=== PATIENT | male | born 1995 | race Caucasian/White ===

== ENCOUNTER 2017-04-17 12:53 | Emergency (ER) | payer OTHER ==
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
[2017-04-17] MEDS ORDERED: IBUPROFEN 600 MG TAB PO ONE (13:30)
[2017-04-17 14:38] VITALS: BP 106/72; PULSE 65; RESP 14; TEMP 98.4; O2SAT 95
== END 2017-04-17 14:38 | disposition home or self-care (01) ==
DX: S29.9XXA Unspecified injury of thorax, initial encounter (principal); V49.49XA Driver injured in collision with other motor vehicles in traffic accident, initial encounter; Y92.410 Unspecified street and highway as the place of occurrence of the external cause; Y99.8 Other external cause status; Y93.89 Activity, other specified